=== PATIENT | male | born 1990 | race Hispanic/Latino ===

== ENCOUNTER 2023-11-07 14:19 | Emergency (ER) | payer OTHER ==
[~2023-11-07] VITALS: Ht 170.2 cm; Wt 85.9 kg
[2023-11-07] MEDS ORDERED: HYDROCODON-ACE1 EA10 PO (17:53)
[2023-11-07 18:11] VITALS: BP 152/97
== END 2023-11-07 18:08 | disposition home or self-care (01) ==
LOC: ED 14:19
DX: S42.141A Displaced fracture of glenoid cavity of scapula, right shoulder, initial encounter for closed fracture (principal); X58.XXXA Exposure to other specified factors, initial encounter; Y92.149 Unspecified place in prison as the place of occurrence of the external cause; Z88.0 Allergy status to penicillin
CPT/HCPCS: 73030; 99284-25